=== PATIENT | female | born 2000 | race Two or more races ===

== ENCOUNTER 2024-12-05 18:00 | Emergency (ER) | payer OTHER, SELFPAY ==
[2024-12-05 18:18] VITALS: BP 133/83; PULSE 96; RESP 16; TEMP 36.9; O2SAT 99; BMI 35.9
--- NOTE | 2024-12-05 19:21 | XR_ITS ---
Examination: CT abdomen and pelvis without contrast. Coronal 3-D reconstructions. Sagittal 2-D reconstructions. Date and time of exam:November 25, 2024 at 1116 hours Indications: Onset left-sided flank pain today CTDI: vol (mGy 10 DLP: (mGycm): 613 Technique: Axial images of the abdomen have been obtained, 3 mm slice thickness Intravenous contrast material has not been administered. Low dose protocols were performed. One or more of the following dose reduction techniques were used; automated exposure control, adjustment of the mA and/or KV according to patient size, use of iterative reconstruction technique. Findings: No gallstones No pancreatic or adrenal mass Mild left hydronephrosis 2 mm distal left ureterovesical junction calculus No bowel obstruction Normal appendix IMPRESSION: Mild left hydronephrosis 2 mm distal left ureterovesical junction calculus
--- NOTE | 2024-12-05 19:27 | PD.EDABDPN ---
ED Abdominal Pain RME/HPI General Chief Complaint: Abdominal Pain Stated complaint: left sided flank pain Time seen by provider: 12/05/24 18:41 Arrival date/time: 12/05/24 18:00 RME / HPI RME / HPI narrative: 23-year-old female patient came in for evaluation regarding left flank pain. Onset of symptoms since several days as worsening left flank pain, severity moderate. Patient is also complaining of constipation, this been ongoing for 1 week. He saw PCP and was given laxatives with no relief. No fever no vomiting no dysuria no other complaints noted no medication was taken prior to arrival. Related Data Allergies Allergy/AdvReac Type Severity Reaction Status Date / Time No Known Allergies Allergy Verified 12/05/24 18:03 Review of Systems Review of Systems Narrative Review of Systems: Review of system reviewed and within normal limits except mentioned in HPI ED Exam Narrative Physical exam: VITAL SIGNS: Reviewed. GENERAL APPEARANCE: Alert and interactive, follows commands, no acute distress, HEAD AND FACE: Non-traumatic. ENT: PERRL, pink conjunctivitis, eyelid no trauma, Mucous membrane moist. NECK: Supple, nontender, no nuchal rigidity. CHEST: No tenderness, no crepitus, no paradoxical movement, no retractions. LUNGS: Clear, well ventilated, symmetric, no rales, no wheezing, no ronchi, no stridor, good breath sounds bilaterally. HEART: Regular rate, regular rhythm, no murmur, no gallops. ABDOMEN: Soft, positive bowel sounds, nondistended, no guarding, left flank tenderness, no rebound, no masses, RECTAL: Deferred. GENITAL: Deferred. NEUROLOGICAL: Gross motor function intact sensory function intact, Appropriate for age. MUSCULOSKELETAL: low back nontender, full range of motion. EXTREMITIES: Nontender, full range of motion. SKIN: Color pink, dry, no rash, no lacerations, no abrasions, no contusions. LYMPHATICS: Deferred. Course Orders Category Date Time Status CT abdomen pelvis wo con Stat Exams 12/05/24 19:21 Ordered CBC Stat Lab 12/05/24 19:22 Ordered Comprehensive Metabolic Panel Stat Lab 12/05/24 19:22 Ordered Lipase Stat Lab 12/05/24 19:22 Ordered Prothrombin Time with INR Stat Lab 12/05/24 19:22 Ordered UA, C/S IF [Urinalysis, C/S if Indicated] Stat Lab 12/05/24 19:22 Ordered Ketorolac Inj [Toradol Inj] Med 12/05/24 19:27 Once 30 mg IM X1 ONE Magnesium Citrate Liqd [Citrate of Magnesia Liqd] Med 12/05/24 19:21 Once 300 ml PO X1 ONE Vital Signs Vital signs: Vital Signs Temperature 98.5 F 12/05/24 18:18 Pulse Rate 96 12/05/24 18:18 Respiratory Rate 16 12/05/24 18:18 Blood Pressure 133/83 H 12/05/24 18:18 Pulse Oximetry (%) 99 12/05/24 18:18 Oxygen Delivery Method Room Air 12/05/24 18:18 Abdominal Pain MDM MDM Narrative MDM Narrative:: 23-year-old female patient came in for evaluation regarding left flank pain. Onset of symptoms since several days as worsening left flank pain, severity moderate. Patient is also complaining of constipation, this been ongoing for 1 week. He saw PCP and was given laxatives with no relief. No fever no vomiting no dysuria no other complaints noted no medication was taken prior to arrival. Medications / Prescriptions Medication administrations:: Medication Administration History Magnesium Citrate (Magnesium Citrate 300 Ml Btl) 300 ml PO X1 ONE Stop: 12/05/24 19:22 Discharge Plan Prescriptions/Referrals Referrals: No Primary/Family,Physician [Primary Care Provider] - In 1 week Patient/Caregiver Discharge Instructions Print Language: Cymraes
[2024-12-05 20:33] LABS: Basophils % (Auto) 0 % (0-2.5); Eosinophils # (Auto) 0.2 Thou/mm3 (0.0-0.5); Eosinophils % (Auto) 1 % (0-10); Hematocrit 39.5 % (36.0-46.0); Hemoglobin 13.4 g/dL (12.0-16.0); Immature Granulocytes % (Auto) 0 % (0-0); Immature Granulocytes Auto 0.05 Thou/mm3 (0.00-0.00); Lymphocytes # (Auto) 1.9 Thou/mm3 (1.0-4.8); Lymphocytes % (Auto) 12 % (10-50); Mean Corpuscular HGB Conc 33.9 g/dl (31.0-37.0); Mean Corpuscular Hemoglobin 30.6 pg (25.0-35.0); Mean Corpuscular Volume 90 fL (80-100); Monocytes # (Auto) 1.1 Thou/mm3 (0.0-0.8); Monocytes % (Auto) 7 % (0-12); Neutrophils # (Auto) 12.4 Thou/mm3 (1.8-7.7); Neutrophils % (Auto) 79 % (37-80); Nucleated Red Blood Cell % 0 /100 WBC (0); Platelet Count 430 Thou/mm3 (140-440); RDW Standard Deviation 43.3 fL (36.4-46.3); Red Blood Count 4.38 Miln/mm3 (4.00-5.20); White Blood Count 15.6 Thou/mm3 (3.6-11.0)
[2024-12-05 20:54] LABS: INR 1.1 (0.9-1.3); Prothrombin Time 11.6 Seconds (9.0-12.2)
[2024-12-05] MEDS: MAGNESIUM CITRATE 300 ML BTL PO (20:59)
[2024-12-05 21:10] LABS: Alanine Aminotransferase 8 U/L (10-49); Albumin, Serum 4.9 gm/dL (3.5-5.0); Albumin/Globulin Ratio 1.8 (1.2-2.2); Alkaline Phosphatase 92 U/L (46-116); Anion Gap 11 (7-16); Aspartate Amino Transferase 13 U/L (0-34); BUN/Creatinine Ratio 10 Ratio (12-20); Bilirubin,Total 0.5 mg/dL (0.3-1.2); Blood Urea Nitrogen 12 mg/dL (9-23); Calcium 8.9 mg/dL (8.3-10.6); Calcium (Corrected) 8.9 mg/dL (8.5-10.1); Carbon Dioxide 28.3 mMol/L (20.0-31.0); Chloride 102 mMol/L (98-107); Creatinine (Component) 1.2 mg/dL (0.6-1.3); Estimated Creatinine Clearance 74.3 mL/min (>60); Globulin 2.8 gm/dL (2.3-3.5); Glucose 91 mg/dL (74-106); Lipase 27 U/L (12-53); Osmolality,Calculated 280 (275-295); Potassium 4.1 mMol/L (3.4-5.1); Sodium 141 mMol/L (136-145); Total Protein 7.7 gm/dL (5.7-8.2); eGFR > 60 See Note
[2024-12-05 22:00] LABS: HCG,Qualitative Serum Negative
[2024-12-05 22:54] LABS: Collection Type, Urine Clean Catch
[2024-12-05 23:10] LABS: HCG Qualitative,Urine Negative
[2024-12-05 23:15] LABS: Bilirubin,Urine Negative (Negative); Blood,Urine Negative (Negative); Clarity,Urine Turbid (Clear/Hazy); Color,Urine Yellow (Lt Yel-Yel); Culture Indicated,Urine Contaminated; Glucose, Urine Negative (Negative); Ketones,Urine 4+ (Negative); Leukocyte Esterase,Urine Positive (Negative); Nitrite,Urine Negative (Negative); PH,Urine 6.5 (5.0-7.0); Protein,Urine 1+ (Neg - Trace); RBC,Urine 27 /hpf (0-3); Specific Gravity,Urine 1.038 (1.001-1.035); Squamous Epithelial Cell,Urine 20 /hpf (0-5); WBC,Urine 57 /hpf (0-5)
[2024-12-05] MEDS: ONDANSETRON ODT 4 MG TABRAP PO (23:26)
[2024-12-05] MEDS: KETOROLAC INJ 60 MG/2 ML VIAL 30 MG IM (23:28)
--- NOTE | 2024-12-06 00:11 | EDNOTE_ITS ---
Emergency Room Addendum Addendum Narrative: Care assumed from colleague. CT came back with 2mm distal L-sided kidney stone. Moderate leukocytosis, likely reactive to N/V. CMP unremarkable. UA contaminated and patient has no dysuria. But will treat with some ABX to prevent more serious complications due to pres ence of kidney stone. Patient felt much better after meds and passed PO challenge.
[2024-12-06] MEDS: TAMSULOSIN HCL 0.4 MG CAPSULE PO (00:30)
[2024-12-06] MEDS: cefuroxime axetiL 250 MG TABLET 500 MG PO (00:30)
== END 2024-12-06 00:47 | disposition home or self-care (01) ==
PROVIDERS: Nurse Practitioner Family; Emergency Provider Emergency Medicine
DX: N20.0 Calculus of kidney (principal); D72.829 Elevated white blood cell count, unspecified
CPT/HCPCS: 36415; 74176; 80053; 81001; 81025; 83690; 84703; 85025; 85610; 96372; 99284; J1885; Q0162; A9270